=== PATIENT | male | born 1935 | race Caucasian/White ===

== ENCOUNTER 2017-09-09 15:22 | Emergency (ER) | payer MEDICARE, OTHER ==
[2017-09-09] MEDS: DIPHTH/TET/ACEL PERTUSS (ADULT) 0.5 ML VIAL IM* (16:38)
[2017-09-09] MEDS: ACETAMINOPHEN 325 MG TAB PO (18:07)
[2017-09-09] MEDS: HYDROCODONE/APAP (5/325) TAB PO (20:50)
== END 2017-09-09 21:19 | disposition home or self-care (01) ==
LOC: E/R 15:22
DX: S00.03XA Contusion of scalp, initial encounter (principal); S29.9XXA Unspecified injury of thorax, initial encounter; M75.92 Shoulder lesion, unspecified, left shoulder; R51 Headache; W01.198A Fall on same level from slipping, tripping and stumbling with subsequent striking against other object, initial encounter; Y92.031 Bathroom in apartment as the place of occurrence of the external cause; Z23 Encounter for immunization
CPT/HCPCS: 29105; 70450; 71100; 73060; 90471; 90715; 99284-25